=== PATIENT | female | born 2000 | race Caucasian/White ===

== ENCOUNTER 2023-09-03 09:31 | Outpatient (REF) | payer OTHER, SELFPAY ==
--- NOTE | ~2023-09-03 | US_ITS ---
EXAMINATION: US PELVIS CLINICAL INFORMATION: Pain COMPARISON: None available. TECHNIQUE: Ultrasound of the pelvis is performed using both transabdominal and transvaginal transducers along with Doppler. Transvaginal imaging is performed due to inadequate visualization transabdominally. FINDINGS: The uterus is retroverted and retroflexed and measures 5.3 x 3 x 3.5 cm in dimension. There is an IUD in the uterus in satisfactory position. Endometrium does not appear thickened measuring 0.2 cm. No focal uterine lesion is seen. The right ovary is slightly enlarged and measures 4.1 x 4.1 x 3 cm. There is a 3.1 x 3 x 2.7 cm complex right ovarian cyst. This has 1.3 x 2.1 x 2.1 cm solid component. This could represent a hemorrhagic cyst with retractile clot. Imaging follow-up in 10-12 weeks following several menstrual cycles recommended. The left ovary is normal-appearing and measures 2.4 x 1.7 x 2.3 cm. There is no fluid in the pelvis. US/US pelvic and transvaginal IMPRESSION: IUD in the uterus in satisfactory position. 3 cm complex right ovarian cyst. Short-term follow-up pelvic ultrasound in 10-12 weeks following several menstrual cycles is recommended.
== END 2023-09-03 09:32 | disposition home or self-care (01) ==
LOC: HO.UMASIMG 09:31
PROVIDERS: Visit Provider Family Medicine
DX: R10.2 Pelvic and perineal pain (principal)
CPT/HCPCS: 76830; 76856